=== PATIENT | male | born 1985 | race Caucasian/White ===

== ENCOUNTER 2022-01-28 09:54 | Emergency (ER) | payer MEDICAID ==
[~2022-01-28] VITALS: Ht 170.2 cm; Wt 81.0 kg
--- NOTE | 2022-01-28 12:05 | NUR ---
patint asleep,respirations 13.
[2022-01-28 14:00] VITALS: BP 136/87
--- NOTE | 2022-01-28 14:05 | NUR ---
Pt given and understands d/c instructions. IV d/c'd, catheter was intact. Ambulatory with a steady gait.
== END 2022-01-28 14:05 | disposition home or self-care (01) ==
LOC: ER 09:54
DX: T50.7X1A Poisoning by analeptics and opioid receptor antagonists, accidental (unintentional), initial encounter (principal); R41.82 Altered mental status, unspecified; Y92.89 Other specified places as the place of occurrence of the external cause
CPT/HCPCS: 93005; 99285